=== PATIENT | male | born 1955 | race Caucasian/White ===

== ENCOUNTER 2016-10-23 09:35 | Outpatient (CLI) | payer OTHER ==
[~2016-10-23] VITALS: Ht 180.3 cm; Wt 136.8 kg
[~2016-10-23 09:35] MED LIST: AMLO-218 PO; ASPI-664 PO; BENA20TA48 PO; FOLI-49 PO; HYDR12.58 PO; INSU100C SC; LANT3I SC; MECL-77 PO; METF1000 PO; SIMV20TA PO
[2016-10-23 09:54] VITALS: BP 149/72; PULSE 80; RESP 18; Ht 180.3 cm; Wt 136.8 kg
[2016-10-23] MEDS ORDERED: LANT3I SC (10:03)
[2016-10-23] MEDS ORDERED: HYD25 PO (10:03)
[2016-10-23] MEDS ORDERED: CHOL100062 PO (10:03)
[2016-10-23] MEDS ORDERED: INSU100I12 SQ (10:03)
[2016-10-23] MEDS ORDERED: FER325 PO (10:03)
--- NOTE | 2016-10-23 12:30 | CONS ---
[facility] INITIAL OUTPATIENT CONSULTATION NOTE DATE OF CONSULTATION: 10/23/2016 PLACE OF SERVICE: [facility] IMPRESSION AND PLAN: A very pleasant but unfortunate 61-year-old gentleman with multiple comorbid issues including BMI of 42.1, diabetes, hypertension, hyperlipidemia, and a number of other issues who was diagnosed with stage IV colon cancer with metastasis to the liver. He has shown remarkable response to systemic chemotherapy and seems to have been controlling his malignancy reasonably well. As best as we can tell, there are no new areas of concern. I do not have a liver dedicated axial series in order to pinpoint the location of these tumors and to assess resectability. I do not believe that there is a high chance that the patient will be able to have an operation due to the initial spread of the disease and their overall location, however, given the long time that the patient has survived without progression of disease, we could certainly review his case more carefully and see if there are any ways that we can render him free of disease, at least grossly. He may benefit with better survival in that setting. Certainly any surgical intervention should include resection of the original site of the tumor as well. His operative risk is increased, given his BMI of 42 and his other comorbidities, but they are not absolute contraindications for him to have surgery. I explained all of this to the patient in detail (no family present during any of my discussions with the patient) and answered all his questions to the best of my ability. With above assessment, I recommend the followin. Liver dedicated triple phase CT scan of the abdomen and pelvis. 2. Colonoscopy if above indicates possible resectability. 3. Multidisciplinary Tumor Board presentation. 4. Continue chemotherapy for now until we have a definitive plan of action for or against surgery. If surgery is elected, then he would have to be off of his chemotherapy for 6 weeks given the presence of Avastin. 5. Follow up with me in 2 to 3 weeks to examine the data. Thank you again for allowing us to participate in the care of this very pleasant gentleman and I am certain his wonderful family. If there are any questions, please feel free to call me at [phone]. TOTAL VISIT TIME: More than 60 minutes, more than half of which was spent in [id number] discussion with the patient as well as coordination of care between multiple physicians and providers. UPDATED CLINICAL SUMMARY: A very pleasant but unfortunate 61-year-old gentleman with multiple comorbid issues including BMI of 42, hypertension, diabetes, hyperlipidemia, and a number of other issues who was diagnosed with colon cancer after presenting with anemia in July of 2015. Colonoscopy 08/2015 showed sigmoid tumor at 25 cm from the anus without mention of size. Biopsy compatible with adenocarcinoma, well to moderately differentiated and KRAS wild type. At the time of presentation, the patient also had evidence of liver involvement, where a PET CT 08/17/2015 showed multiple moderate to large size foci of intensity with increased metabolic activity with central areas of mildly reduced uptake noted in both lobes of the liver, corresponding to multiple low attenuation masses on the CT scan compatible with multiple liver metastases. There was also a small focus of intensely increased metabolic activity corresponding to 1.1 cm soft tissue nodule in the left parotid gland nonspecific findings; however, a neoplastic lesion could not be ruled out. The patient underwent a CT-guided biopsy of one of his liver lesions 09/17/2015 where the diagnosis was moderately well-differentiated adenocarcinoma compatible with colon primary. The patient underwent 16 cycles of FOLFOX and 6 cycles of FOLFIRI which he is currently undergoing. 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 The patient also is getting Avastin. Comorbidities: 1. Colon cancer diagnosed in July of 2015 due to anemia located in sigmoid colon as well as multiple lesions in the liver as above, KRAS wild type, treated with systemic chemotherapy. 2. BMI of 42.1. 3. Diabetes mellitus. 4. Hypertension. 5. Hyperlipidemia. 6. History of skin cancer, basal cell carcinoma of the face. 7. Anemia, iron deficiency and malignancy related. 8. Lack of teeth. 9. Chronic pain syndrome. 10. Vitamin D deficiency. 11. Adopted status with unknown family history. 12. Status post Port-A-Cath placement early 2015. 13. Decreased CEA 75 from 89 from 735. HISTORY OF PRESENT ILLNESS: ILLNESS: The patient is a very pleasant 61-year- old gentleman with above-mentioned comorbidities whom we were kindly asked to consult regarding management of his stage IV colon cancer from sigmoid colon with metastasis to liver in multiple areas. The patient himself has been feeling well. He reports having tolerated chemotherapy well without any major problems. He does not report any issues with his appetite and in general has been living life normally knowing that he has stage IV malignancy. No major abdominal pain complaints and no nausea or vomiting. No reported major complications that required hospitalization or interventions since diagnosis of the cancer in 2014. His only colonoscopy was in July of 2015 at the time of his diagnosis. He has seen a surgeon in August of 2015 (Dr. Jose Alejandro Rouse MD), and the recommendation at that time was to get chemotherapy prior to any surgical intervention. No other major complaints. ALLERGIES: NO KNOWN DRUG ALLERGIES. MEDICATIONS: 1. Hydrochlorothiazide. 2. Metformin. 3. Aspirin. 4. Simvastatin. 5. Humalog. 6. Lantus. 7. Meclizine. 8. Benazepril. 9. Amlodipine. 10. Folic acid. 11. Ferrous sulfate. 12. Vitamin D3. 13. FOLFIRI with Avastin, cycle #7 to start next week. SOCIAL HISTORY: The patient is adopted. His adopted brother also was from a different family and he has 3 children of his own. He does not report any smoking, drinking, or intravenous drug use. FAMILY HISTORY: Unknown. REVIEW OF SYSTEMS: The patient does have to get up in the middle of the night to urinate. He sleeps with head and shoulders propped up on pillows. No pulmonary complaints. He does have frequency of urination. + constipation. + on blood thinners and on aspirin. No other pertinent positives or pertinent negatives in a complete 14-point review of systems. PHYSICAL EXAMINATION: GENERAL: The patient appears to be a very pleasant gentleman of non- descent, appearing stated age, sitting in a chair comfortably and in no acute distress. BMI of 42.1. VITAL SIGNS: Temperature is 98.1, blood pressure 149/72, pulse 80, respiratory rate 18, pulse oximetry 96% on room air. HEENT: Normocephalic and atraumatic. Extraocular muscles and hearing are grossly intact bilaterally and symmetrically. Sclerae are nonicteric. Oral cavity is clear; oral mucosa appeared to be pink and moist. Dentition: fair. NECK: Supple. There is no lymphadenopathy or JVD. There is no submental, submandibular or supraclavicular lymphadenopathy. CHEST: Rises symmetrically with each breath; patient is breathing comfortably. There are no audible wheezes, rales or rhonchi on the gross exam. HEART: Pulse is regular and palpable on the right wrist. Capillary refill was normal. Carotid pulses are palpable bilaterally and symmetrically in the neck. EXTREMITIES: Lower extremities contain no pitting edema around the ankles bilaterally and symmetrically. ABDOMEN: Protuberant, but soft and nondistended and nontender. There are no peritoneal signs or guarding. There is no evidence of hepatomegaly, ascites, caput medusae, or engorged subcutaneous veins. SKIN: Appears to be pink and feels warm to touch. NEUROLOGIC: Awake, alert, and follows commands appropriately. LABORATORY DATA: Dated 10/06/2016. White blood cell count 5.8, hemoglobin 11.2 , platelets 241. Electrolytes are normal. CO2 28, albumin 3.7, bilirubin 0.5, AST 16, ALT 12, alkaline phosphatase 97. IMAGING: Pertinent images were reviewed above. Note that I personally reviewed all these images and I agree in general with their overall reported findings. Dictated By: LATIA GALVAN/RED Conf#: [id number] DID#: [id number] CC: OPAL GAUTAM; Queenie Lester [employer];*End* MTDD
== END 2016-10-23 15:58 | disposition home or self-care (01) ==
LOC: HPC 09:35
PROVIDERS: ATTEND Transplant Surgery
DX: C18.9 Malignant neoplasm of colon, unspecified (principal); C78.00 Secondary malignant neoplasm of unspecified lung; E11.9 Type 2 diabetes mellitus without complications; I10 Essential (primary) hypertension; E78.5 Hyperlipidemia, unspecified; D50.9 Iron deficiency anemia, unspecified; E55.9 Vitamin D deficiency, unspecified; Z85.828 Personal history of other malignant neoplasm of skin; Z79.82 Long term (current) use of aspirin
CPT/HCPCS: G0463

== ENCOUNTER 2016-12-20 14:33 | Outpatient (CLI) | payer OTHER ==
[~2016-12-20] VITALS: Ht 180.3 cm; Wt 134.1 kg
[~2016-12-20 14:33] MED LIST changes: +CHOL100062 PO; +FER325 PO; +HYD25 PO; -HYDR12.58 PO; -INSU100C SC; +INSU100I12 SQ
[2016-12-20 14:51] VITALS: BP 154/72; PULSE 80; RESP 18; Ht 180.3 cm; Wt 134.1 kg
--- NOTE | 2016-12-20 16:47 | PN ---
Date/Time of Note Date/Time of Note DATE: 12/20/16 TIME: 16:44 Assessment/Plan Assessment/Plan Assessment/Plan [facility] Progress Note Date of Service: 12/20/16 Today's Impression & Plan: Overall stable. New CT done on 11/13/16 shows presence of malignancy in all segments of the liver (including segment 1), therefore ruling out a surgical approach as beneficial for the patient. Clinical picture is otherwise stable. I reviewed available local treatment options including bland embolization, TACE, and radioembolization as possible options if he shows progression of disease or develops symptoms from the lesions, or if the multidisciplinary tumor board recommends doing. I also reviewed heat ablative therapies such as RFA, but I recommended against such approach. For now, we can continue his chemo and observe per routine guidelines. I explained all of this to the patient in detail (no family present during any of my discussions with the patient) and answered all his questions to the best of my ability. With above assessment, I recommend the followin. Multidisciplinary Tumor Board presentation. 2. Continue chemotherapy for now until we have a definitive plan of action for or against local liver therapy. 3. Follow up with you Dr. Baker 4. Follow up with us prn Thank you again for allowing us to participate in the care of this very pleasant gentleman and I am certain his wonderful family. If there are any questions, please feel free to call me at [phone]. TOTAL VISIT TIME: 20 minutes of which more than half was spent in [id number] discussion with the patient, possibly including family, as well as coordination of care between multiple physicians and providers. Disclaimer: Inadvertent spelling or grammatical errors are likely due to EHR/ dictation software use and do not reflect on the overall quality of patient care. Updated Clinical Summary: A very pleasant but unfortunate 61-year-old gentleman with multiple comorbid issues including BMI of 42, hypertension, diabetes, hyperlipidemia, and a number of other issues who was diagnosed with colon cancer after presenting with anemia in July of 2015. Colonoscopy 07/22/2015 showed sigmoid tumor at 25 cm from the anus without mention of size. Biopsy compatible with adenocarcinoma, well to moderately differentiated and KRAS wild type. At the time of presentation, the patient also had evidence of liver involvement, where a PET CT 08/17/2015 showed multiple moderate to large size foci of intensity with increased metabolic activity with central areas of mildly reduced uptake noted in both lobes of the liver, corresponding to multiple low attenuation masses on the CT scan compatible with multiple liver metastases. There was also a small focus of intensely increased metabolic activity corresponding to 1.1 cm soft tissue nodule in the left parotid gland nonspecific findings; however, a neoplastic lesion could not be ruled out. The patient underwent a CT -guided biopsy of one of his liver lesions 09/17/2015 where the diagnosis was moderately well-differentiated adenocarcinoma compatible with colon primary. The patient underwent 16 cycles of FOLFOX and 6 cycles of FOLFIRI which he is currently undergoing. 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 The patient also is getting Avastin. New CT done on 11/13/16 shows presence of malignancy in all segments of the liver (including segment 1), therefore ruling out a surgical approach as beneficial for the patient. Comorbidities: 1. Colon cancer diagnosed in July of 2015 due to anemia located in sigmoid colon as well as multiple lesions in the liver as above, KRAS wild type, treated with systemic chemotherapy. 2. BMI of 42.1. 3. Diabetes mellitus. 4. Hypertension. 5. Hyperlipidemia. 6. History of skin cancer, basal cell carcinoma of the face. 7. Anemia, iron deficiency and malignancy related. 8. Lack of teeth. 9. Chronic pain syndrome. 10. Vitamin D deficiency. 11. Adopted status with unknown family history. 12. Status post Port-A-Cath placement early 2015. 13. Decreased CEA 75 from 89 from 735. Subjective: No major events or complaints; no abd pain; no n/v/d; no sob or cp; + flatus; + BM and normal; + activity Objective: Vitals: See below Exam: GENERAL: On exam, the patient was sitting in a chair and appeared to be comfortable and in no acute distress. ABDOMEN: Soft, nontender and nondistended. There are no peritoneal signs or guarding. SKIN: Skin appears to be pink and feels warm to touch. NEUROLOGIC: Patient is awake, alert, and follows commands appropriately. Exam/Review of Systems Vital Signs Vitals Vital Signs Date Time Temp Pulse Resp B/P Pulse Ox O2 Delivery O2 Flow Rate FiO2 12/20/16 14:51 97.6 80 18 154/72 95 Room Air LATIA CATES M.D. Dec 20, 2016 16:47
== END 2016-12-20 16:58 | disposition home or self-care (01) ==
LOC: HPC 14:33
PROVIDERS: ATTEND Transplant Surgery
DX: C78.7 Secondary malignant neoplasm of liver and intrahepatic bile duct (principal); C18.7 Malignant neoplasm of sigmoid colon; E11.9 Type 2 diabetes mellitus without complications; I10 Essential (primary) hypertension; E78.5 Hyperlipidemia, unspecified; Z85.828 Personal history of other malignant neoplasm of skin; D50.9 Iron deficiency anemia, unspecified; D51.0 Vitamin B12 deficiency anemia due to intrinsic factor deficiency; K00.0 Anodontia; G89.4 Chronic pain syndrome; E55.9 Vitamin D deficiency, unspecified
CPT/HCPCS: G0463

== ENCOUNTER 2018-01-04 12:20 | Inpatient (IN) | END 2018-01-07 17:25 | disposition home or self-care (01) | DRG 101 ==

== ENCOUNTER 2018-02-11 21:13 | Inpatient (IN) | END 2018-02-20 21:40 | DRG 872 ==